=== PATIENT | female | born 1940 | race African-American/Black ===

== ENCOUNTER 2025-07-06 01:22 | Inpatient (IN) | payer OTHER ==
[2025-07-06] VITALS (43 sets, daily range): BP systolic 81–140; BP diastolic 51–101; PULSE 91–130; RESP 20–37; TEMP 36.6–37.1; O2SAT 91–100
[~2025-07-06] VITALS: Ht 165.1 cm; Wt 72.1 kg
[2025-07-06] MEDS: ALBUTEROL (0.083%) 2.5MG/3ML NEB HHN ONE (01:57)
[2025-07-06] MEDS: DILTIAZEM HCL 5MG/ML 5ML VIAL IV ONE (01:59)
[2025-07-06 04:03] LABS: BASOPHILS % 0.5 % (0.0-2.0); EOSINOPHILS % 0.7 % (0.0-5.0); HEMATOCRIT. 35.6 % (36.0-48.0); HEMOGLOBIN. 11.7 g/dL (12.0-16.0); LYMPHOCYTES % 30.4 % (20.0-50.0); MEAN PLATELET VOLUME 9.9 fl (7.4-10.4); MONOCYTES % 6.0 % (2.0-8.0); NEUTROPHILS % 62.4 % (40.0-76.0); PLATELET 303 x1000/uL (130-400); RED BLOOD CELL COUNT 4.02 mill/uL (4.2-5.4); RED CELL DISTRIBUTION WIDTH 14.5 % (11.6-14.6)
[2025-07-06 06:03] LABS: INR 1.4
[2025-07-06] MEDS: PIPERACILLIN/TAZO 3.375G/50ML 50 ML IV ONE (06:25)
[2025-07-06] MEDS: SODIUM CHLORIDE 0.9% 250 ML IV ONE (06:25)
[2025-07-06 06:33] LABS: CREATININE 1.4 mg/dL (0.6-1.0); UREA NITROGEN BLOOD 17 mg/dL (9-23)
[2025-07-06 06:35] LABS: ASPARTATE AMINOTRANSFERASE 23 IU/L (<34)
[2025-07-06 06:36] LABS: BILIRUBIN DIRECT 0.2 mg/dL (<=3.0); BILIRUBIN TOTAL 0.6 mg/dL (0.1-1.0); PHOSPHORUS 4.2 mg/dL (2.5-4.9); PROTEIN TOTAL 7.9 g/dL (6.0-8.3)
[2025-07-06 06:42] LABS: TROPONIN I HIGH SENSITIVITY 56 ng/L (3.0-34)
[2025-07-06] MEDS: VANCOMYCIN 1G PREMIX 200 ML IV ONE (06:55)
[2025-07-06 07:07] LABS: ETHANOL BLOOD < 10 mg/dL (<10)
[2025-07-06] MEDS ORDERED: ONDANSETRON HCL 4MG/2ML INJ IV PRN (08:45)
[2025-07-06] MEDS ORDERED: CLONIDINE 0.1MG TABLET PO PRN (08:45)
[2025-07-06] MEDS ORDERED: DOCUSATE SODIUM 100MG CAPSULE PO PRN (08:45)
[2025-07-06] MEDS ORDERED: DEXTROSE 50% WATER 50ML SYRINGE IV PRN (08:45)
[2025-07-06] MEDS ORDERED: ACETAMINOPHEN 325MG TABLET PO PRN ×2 (08:45)
[2025-07-06 08:48] LABS: INFLUENZA TYPE A Presumptive Negative (Pres. Neg.); INFLUENZA TYPE B Presumptive Negative (Pres. Neg.)
[2025-07-06] MEDS ORDERED: FUROSEMIDE 40MG/4ML VIAL IVP SCH (09:00)
[2025-07-06 09:03] LABS: BG BASE EXCESS -2.0 mmol/L (-2.0-3.0); BG CARBOXYHEMOGLOBIN 0.5 % (0.5-1.5); BG DEOXYHEMOGLOBIN 1.4 % (0.0-5.0); BG FRACTION INSPIRED OXYGEN 40; BG HCO3 ACT 22.7 mmol/L (21.0-28.0); BG METHEMOGLOBIN 0.3 % (0.5-1.5); BG OXYGEN SATURATION 98.6 % (94.0-98.0); BG OXYHEMOGLOBIN 97.8 % (94.0-98.0); BG PCO2 38.4 mmHg (32.0-45.0); BG PH 7.389 (7.350-7.450); BG PO2 125.9 mmHg (83.0-108.0); BG SAMPLE SITE LEFT RADIAL; BG TOTAL HEMOGLOBIN 11.5 g/dL (12.0-16.0); BG VENT MODE MASK - BIPAP; BG VENT RATE 18.0 set
[2025-07-06] MEDS: AMIODARONE 200MG TABLET PO SCH (09:15)
[2025-07-06] MEDS ORDERED: AMIODARONE HCL 900 MG in DEXT 5% WATER 482 ML IV SCH (09:15)
[2025-07-06] MEDS: ENOXAPARIN 80MG/0.8ML SYR SUBCUT SCH (09:44)
[2025-07-06] MEDS: ASPIRIN 81MG TABLET PO SCH (09:44)
[2025-07-06] MEDS: FAMOTIDINE 20MG/2ML VIAL IV SCH (09:45)
[2025-07-06] MEDS: FUROSEMIDE 40MG/4ML VIAL IVP SCH (09:45)
[2025-07-06] MEDS: DILTIAZEM HCL 5MG/ML 5ML VIAL IV NR (09:48)
[2025-07-06] MEDS: IPRATROPIUM/ALBUTEROL 0.5-3(2.5)MG/3ML NEB HHN PRN (10:34)
[2025-07-06 10:55] LABS: CREATINE KINASE MB FRACTION 5.6 ng/mL (0.5-3.6)
[2025-07-06 10:59] LABS: T4 FREE 1.42 ng/dL (0.89-1.76)
[2025-07-06] MEDS: AMIODARONE 150MG/100ML D5W 100 ML IV NR (11:44)
[2025-07-06] MEDS: AMIODARONE 360MG/200ML D5W PREMIX IV ONE (11:45)
[2025-07-06] MEDS: AZITHROMYCIN 500MG/250ML 250 ML IV SCH (11:53)
[2025-07-06] MEDS: BLOOD SUGAR DIAGNOSTIC STRIP TEST SCH (12:37)
[2025-07-06] MEDS: INSULIN LISPRO 100 UNITS/ML SUBCUT SCH (12:42)
[2025-07-06] MEDS: IPRATROPIUM/ALBUTEROL 0.5-3(2.5)MG/3ML NEB HHN SCH (12:53)
[2025-07-06] MEDS: BUDESONIDE 0.5MG/2ML NEB HHN SCH (12:53)
[2025-07-06] MEDS: CEFTRIAXONE 1GM/50ML 50 ML IV SCH (13:04)
[2025-07-06] MEDS: DILTIAZEM HCL 30MG TABLET PO SCH (13:05)
[2025-07-06 13:27] LABS: CLARITY URINE CLOUDY (CLEAR); COLOR URINE YELLOW (YELLOW); GLUCOSE URINE NEGATIVE (NEGATIVE); KETONES URINE TRACE (NEGATIVE); LEUKOCYTE ESTERASE URINE NEGATIVE (NEGATIVE); NITRITE URINE NEGATIVE (NEGATIVE); OCCULT BLOOD URINE NEGATIVE (NEGATIVE); PH URINE 5.0 (4.5-8.0); PROTEIN URINE 1+ (NEGATIVE); SPECIFIC GRAVITY URINE 1.026 (1.005-1.030); UROBILINOGEN URINE 0.2 E.U./dL (0.2-1.0)
[2025-07-06 13:53] LABS: *AMPHETAMINES SCREEN URINE NEGATIVE (NEGATIVE); *BARBITURATES SCREEN URINE NEGATIVE (NEGATIVE); *BENZODIAZEPINES SCREEN URINE NEGATIVE (NEGATIVE); *COCAINE SCREEN URINE NEGATIVE (NEGATIVE); CANNABINOID URINE SCREEN NEGATIVE (NEGATIVE); METHADONE URINE SCREEN NEGATIVE (NEGATIVE); OPIATES URINE SCREEN NEGATIVE (NEGATIVE); PHENCYCLIDINE URINE SCREEN NEGATIVE (NEGATIVE)
[2025-07-06 13:54] LABS: ECSTASY MDMA SCREEN URINE NEGATIVE (NEGATIVE)
[2025-07-06 13:57] LABS: BACTERIA URINE 1+; RBC URINE 0-2 /hpf (0-2); SQUAMOUS EPITHELIAL CELL URINE 1+ /lpf (RARE/1+); YEAST URINE NONE SEEN
[2025-07-06 14:43] LABS: TROPONIN I HIGH SENSITIVITY 1252 ng/L (3.0-34)
[2025-07-06] MEDS: AMIODARONE 360MG/200ML 200 ML IV SCH (17:47)
[2025-07-06] MEDS: DIGOXIN 500MCG/2ML AMP IV SCH ×2 (18:52→22:23)
[2025-07-06] MEDS: ATORVASTATIN CALCIUM 20MG TABLET PO SCH (22:25)
[2025-07-07] VITALS (18 sets, daily range): BP systolic 95–158; BP diastolic 53–97; PULSE 77–110; RESP 17–28; TEMP 36.2–37; O2SAT 96–100
[2025-07-07] MEDS: LEVOTHYROXINE SODIUM 125MCG TABLET PO SCH (06:45)
[2025-07-07 11:30] LABS: BG BASE EXCESS 1.2 mmol/L (-2.0-3.0); BG CARBOXYHEMOGLOBIN 0.4 % (0.5-1.5); BG DEOXYHEMOGLOBIN 8.2 % (0.0-5.0); BG FRACTION INSPIRED OXYGEN 21; BG HCO3 ACT 24.8 mmol/L (21.0-28.0); BG METHEMOGLOBIN 0.2 % (0.5-1.5); BG OXYGEN SATURATION 91.8 % (94.0-98.0); BG OXYHEMOGLOBIN 91.2 % (94.0-98.0); BG PCO2 35.4 mmHg (32.0-45.0); BG PH 7.463 (7.350-7.450); BG PO2 61.7 mmHg (83.0-108.0); BG SAMPLE SITE LEFT RADIAL; BG TOTAL HEMOGLOBIN 10.3 g/dL (12.0-16.0); BG VENT MODE ROOM AIR
[2025-07-07] MEDS: AMIODARONE 200MG TABLET PO SCH (12:45)
[2025-07-07] MEDS: METOPROLOL TARTRATE 50MG TABLET PO SCH (12:45)
[2025-07-07 13:22] LABS: BASOPHILS % 0.1 % (0.0-2.0); EOSINOPHILS % 0.1 % (0.0-5.0); HEMATOCRIT. 30.6 % (36.0-48.0); HEMOGLOBIN. 9.8 g/dL (12.0-16.0); LYMPHOCYTES % 10.7 % (20.0-50.0); MEAN PLATELET VOLUME 9.1 fl (7.4-10.4); MONOCYTES % 9.6 % (2.0-8.0); NEUTROPHILS % 79.5 % (40.0-76.0); PLATELET 238 x1000/uL (130-400); RED BLOOD CELL COUNT 3.51 mill/uL (4.2-5.4); RED CELL DISTRIBUTION WIDTH 14.5 % (11.6-14.6)
[2025-07-07 14:05] LABS: CREATININE 1.5 mg/dL (0.6-1.0)
[2025-07-07 14:06] LABS: UREA NITROGEN BLOOD 18.0 mg/dL (9-23)
[2025-07-07] MEDS ORDERED: POTASSIUM CHLORIDE 20MEQ/PACKET PO NR (14:45)
[2025-07-07] MEDS: POTASSIUM CHLORIDE 20MEQ/PACKET PO SCH (18:43)
== END 2025-07-08 02:00 | disposition short-term general hospital (02) | DRG 871 ==
LOC: ER 01:22 → 5EST 05:49 → EDBEDREQTM 06:48 → EDBEDREQ 06:48 → EDBEDREQSVC 06:48 → ENRESERV 07:07
PROVIDERS: ADMIT Internal Medicine; ATTEND Internal Medicine
PROC: 5A09357 Assistance with Respiratory Ventilation, Less than 24 Consecutive Hours, Continuous Positive Airway Pressure (ICD-10-PCS; principal; 2025-07-06)
PROC: 5A09357 Assistance with Respiratory Ventilation, Less than 24 Consecutive Hours, Continuous Positive Airway Pressure (ICD-10-PCS; 2025-07-07)
DX: A41.9 Sepsis, unspecified organism (principal); I21.A1 Myocardial infarction type 2; J96.01 Acute respiratory failure with hypoxia; I50.23 Acute on chronic systolic (congestive) heart failure; J18.9 Pneumonia, unspecified organism; N17.9 Acute kidney failure, unspecified; E87.20 Acidosis, unspecified; I13.0 Hypertensive heart and chronic kidney disease with heart failure and stage 1 through stage 4 chronic kidney disease, or unspecified chronic kidney disease; J44.1 Chronic obstructive pulmonary disease with (acute) exacerbation; I16.1 Hypertensive emergency; J44.0 Chronic obstructive pulmonary disease with (acute) lower respiratory infection; Z20.822 Contact with and (suspected) exposure to COVID-19; I48.91 Unspecified atrial fibrillation; D64.9 Anemia, unspecified; T38.0X5A Adverse effect of glucocorticoids and synthetic analogues, initial encounter; E11.65 Type 2 diabetes mellitus with hyperglycemia; R65.20 Severe sepsis without septic shock; N18.9 Chronic kidney disease, unspecified; E11.22 Type 2 diabetes mellitus with diabetic chronic kidney disease; E03.9 Hypothyroidism, unspecified; E78.5 Hyperlipidemia, unspecified; Y92.89 Other specified places as the place of occurrence of the external cause; Z90.710 Acquired absence of both cervix and uterus; Z79.899 Other long term (current) drug therapy
CPT/HCPCS: 36415; 36600; 71045; 80048; 80076; 80305; 80320; 81003; 82375; 82550; 82553; 82805; 82962; 83036; 83605; 83735; 83880; 84100; 84145; 84439; 84443; 84480; 84484; 85025; 85379; 86850; 86900; 87426; 87804; 93005; 93306; 93970; 94070; 94640; 94660; 94664; 99291; A4606; J0282; J0456; J0696; J1160; J1308; J1650; J1815; J1938; J2543; J3373; J3490; J7626; G0480